=== PATIENT | male | born 1990 | race Hispanic/Latino ===

== ENCOUNTER 2018-02-02 09:40 | Emergency (ER) | payer SELFPAY ==
[2018-02-02] MEDS ORDERED: Adacel (T-DAP) 0.5 ML VIAL ONE (10:10)
--- NOTE | 2018-02-02 10:23 | RAD ---
LEFT INDEX FINGER 3 VIEWS: Date: 02/02/18 HISTORY: Finger injury with saw. FINDINGS: Osseous laceration at the lateral margin of the base of the middle phalanx left index finger is 0.5 c m depth x 0.2 cm width, extending almost retirement across the width of the phalanx. Tiny adjacent ossif ic fragments lie adjacent to the laceration plane. Overlying soft tissue laceration is also apparent. No evidence of intraarticular extension or metallic foreign bodies. IMPRESSION: Osseous and soft tissue laceration of the middle phalanx left index finger. POS: [facility]
[2018-02-02] MEDS ORDERED: CEFAZOLIN/Water 2 GM/20 ML SYRINGE SLOW IVP SCH (11:00)
== END 2018-02-02 12:00 | disposition home or self-care (01) ==
LOC: ERS 09:40
DX: S62.621B Displaced fracture of middle phalanx of left index finger, initial encounter for open fracture (principal); W27.0XXA Contact with workbench tool, initial encounter; Y92.69 Other specified industrial and construction area as the place of occurrence of the external cause; Y99.0 Civilian activity done for income or pay
CPT/HCPCS: 12042; 90471; 90715; 96365

== ENCOUNTER 2025-03-13 10:10 | Emergency (ER) | payer OTHER, SELFPAY ==
[~2025-03-13 10:10] MED LIST: Iopamidol-370 76% 500 ML MDV (1 ML CHARGE) ONE
[2025-03-13 10:53] LABS: Bacteria/HPF None Seen HPF (None Seen); CAUTI Indications for Culture Acute Hematuria; Glucose, Urine (Dipstick) Normal (Negative); Leukocyte Negative Leu/uL (Negative); Protein, Urine (Dipstick) 10 mg/dL (Neg-Trace); RBC/HPF 0-3 HPF (0-3); Specific Gravity, Urine 1.022 (1.002-1.036); WBC/HPF 0-3 HPF (0-3)
[2025-03-13 10:58] LABS: Urine Culture Reflex No No
[2025-03-13] MEDS ORDERED: Famotidine/PF 20 mg/2ml Vial ONE (12:55)
[2025-03-13 13:03] LABS: #Basophils Less than 0.03 10x3/uL (0.0-0.2); #Eosinophils 0.03 10x3/uL (0.0-0.7); #Monocytes 1.44 10x3/uL (0.11-0.59); #Neutrophils 14.84 10x3/uL (1.40-6.50); %Basophils 0.1 % (0.0-1.0); %Eosinophils 0.2 % (0.0-10.0); %Lymphocytes 13.1 % (21.0-51.0); %Monocytes 7.6 % (0.0-10.0); %Neutrophils 78.8 % (42.0-75.0); Hematocrit 44.7 % (42.0-52.0); Hemoglobin 14.7 g/dL (14.0-18.0); Mean Corpuscular Hemoglobin 29.9 pg (27.0-31.0); Mean Corpuscular Volume 90.9 fL (78.0-98.0); Platelet Count 294 10x3/uL (130-400); Red Blood Cell (RBC) Count 4.92 mill/uL (4.70-6.10); White Blood Cell (WBC) Count 18.83 10x3/uL (4.8-10.8)
[2025-03-13 13:22] LABS: ALT (SGPT) 26 U/L (Less than 45); AST (SGOT) 20 U/L (11-34); Albumin 4.1 g/dL (3.1-4.5); Alkaline Phosphatase 71 U/L (40-110); Anion Gap 13 mmol/L (10-20); BUN (Urea Nitrogen) 8 mg/dL (8.9-20.6); Bilirubin, Total 1.0 mg/dL (0.3-1.2); Calc. Creatinine Clearance 0 mL/min (70-130); Calcium 9.0 mg/dL (7.8-10.44); Carbon Dioxide 22 mmol/L (22-29); Chloride 104 mmol/L (98-107); Globulin 3.6 g/dL (2.4-3.5); Glucose 121 mg/dL (70-105); Lipase 8 U/L (8-78); Potassium 4.2 mmol/L (3.5-5.1); Sodium 135 mmol/L (136-145)
[2025-03-13] MEDS ORDERED: Lidocaine Viscous Sol 2% 15 ml UD Cup ONE (13:48)
[2025-03-13] MEDS ORDERED: Mag-Al 1200 mg/1200 mg/30 ML UDCUP ONE (13:48)
== END 2025-03-13 15:45 | disposition home or self-care (01) ==
LOC: ERS 10:10
DX: K20.90 Esophagitis, unspecified without bleeding (principal); J90 Pleural effusion, not elsewhere classified
CPT/HCPCS: 74177; 80053; 81001; 83690; 85025; 96372; 96374; J1308; Q9967